=== PATIENT | female | born 1955 | race Caucasian/White ===

== ENCOUNTER 2021-03-29 11:24 | Emergency (ER) | payer BC ==
[~2021-03-29] VITALS: Ht 165.1 cm; Wt 68.0 kg
[2021-03-29] MEDS ORDERED: LIDOCAINE 1% INJ 50 ML MDV IJ ONE (11:43)
[2021-03-29] MEDS ORDERED: TDAP [DIPH/PERTUSSIS/TET] 0.5 ML VIAL IM ONE (12:29)
--- NOTE | 2021-03-29 12:35 | NUR ---
Patient discharged to home in stable condition. Written and verbal after care instructions given. Patient verbalizes understanding of instruction.
[2021-03-29] MEDS: TDAP [DIPH/PERTUSSIS/TET] 0.5 ML VIAL IM ONE (12:42)
[2021-03-29 12:44] VITALS: BP 129/85
== END 2021-03-29 12:45 | disposition home or self-care (01) ==
LOC: ER 11:29
DX: S01.111A Laceration without foreign body of right eyelid and periocular area, initial encounter (principal); S06.0X0A Concussion without loss of consciousness, initial encounter; S60.511A Abrasion of right hand, initial encounter; Z88.2 Allergy status to sulfonamides; W01.0XXA Fall on same level from slipping, tripping and stumbling without subsequent striking against object, initial encounter; Y93.89 Activity, other specified; Y92.89 Other specified places as the place of occurrence of the external cause; Y99.8 Other external cause status
CPT/HCPCS: 12013; 70450; 90471; 90715; 99284; A6403; J3490